=== PATIENT | male | born 1940 | race Caucasian/White ===

== ENCOUNTER → 2025-07-11 09:23 | Outpatient (REF) | payer MEDICARE, BC, SELFPAY | LOC: HWRAD 09:23 | PROVIDERS: ATTENDING PHYSICIAN Internal Medicine | DX: J18.9 Pneumonia, unspecified organism (principal) | CPT/HCPCS: 71046 ==

== ENCOUNTER → 2025-11-02 07:19 | Outpatient (REF) | payer MEDICARE, BC, SELFPAY | LOC: RAD 07:19 | PROVIDERS: ATTENDING PHYSICIAN Internal Medicine; FAMILY PHYSICIAN Internal Medicine | DX: N18.32 Chronic kidney disease, stage 3b (principal); I10 Essential (primary) hypertension | CPT/HCPCS: 76770; 93975 ==